=== PATIENT | female | born 1970 | race Hispanic/Latino ===

== ENCOUNTER 2025-07-24 05:40 | Day surgery (SDC) | payer BC ==
[2025-07-22 10:20] LABS: IMMATURE GRANULOCYTE ABSOLUTE 0.02 K/uL (0-1); NUCLEATED RED BLOOD CELLS 0.0 % (0.0-0.19); PLATELET COUNT (AUTO) 313 K/uL (130-400); RED BLOOD CELL COUNT(AUTO) 4.24 MIL/uL (4.00-5.50); RED CELL DISTRIBUTION WIDTH 12.3 % (11.0-15.5); WHITE BLOOD COUNT (AUTO) 5.8 K/uL (4.8-10.8)
[2025-07-22 10:21] VITALS: BP 99/63; PULSE 67; RESP 18; TEMP 97.3
--- NOTE | 2025-07-22 10:21 | EKG ---
[facility] Test Date: 2025-07-22 Test Time: 10:06:59 Pat Name: LUCERO JOSÉ Department: [facility] Room: Gender: F [employer] Operator: [id number] : [id number] Requested By: RICHARD MENDOZA Order Number: [id number] Reading MD: Nora Restrepo Measurements Intervals Decker Rate: 64 P: 83 DC: 148 QRS: -14 QRSD: 96 T: -7 QT: 460 QTc: 475 Interpretive Statements Sinus rhythm No previous ECG available for comparison Electronically Signed On 07-22-2025 20:13:21 CDT by Nora Restrepo Please click the below link to view image of tracing.
[2025-07-22 10:27] LABS: INR 0.99 (0.85-1.15)
[2025-07-22 10:28] LABS: CREATININE 0.8 mg/dL (0.5-1.0); GLOMERULAR FILTR. RATE CALC 86.0 mL/min (>90); GLUCOSE,RANDOM 97.0 mg/dL (70-105); SODIUM SERUM 141.0 mmol/L (136-145); UREA NITROGEN, BLOOD 20.0 mg/dL (7-18)
[~2025-07-24] VITALS: Ht 154.9 cm; Wt 60.6 kg
[2025-07-24] VITALS (7 sets, daily range): BP systolic 102–124; BP diastolic 56–75; PULSE 68–85; RESP 13–17; TEMP 97.5–97.6
[~2025-07-24 05:40] MED LIST: DAPA10TA PO; FURO20TA4 PO; METO-391 PO; SACU1TAB PO; SPIR25TA6 PO
[2025-07-24] MEDS: 0.9%NACL 1000ML 1,000 ML IV SCH (06:40)
[2025-07-24] MEDS ORDERED: SODIUM BICARB 50MEQ 50ML VIAL 50 ML ONE (08:34)
[2025-07-24] MEDS ORDERED: LIDOCAINE HCL 400MG/20ML VIAL ONE (08:34)
[2025-07-24] MEDS ORDERED: IOHEXOL-350 50ML VIAL IV ONE (08:35)
[2025-07-24] MEDS ORDERED: LIDOCAINE HCL 1% MDV 50ML VIAL ONE (08:36)
[2025-07-24] MEDS ORDERED: MIDAZOLAM HCL 1 MG/ML 2ML VIAL ONE ×3 (08:50→09:57)
[2025-07-24] MEDS ORDERED: TRAM50TA4 PO (10:31)
--- NOTE | 2025-07-24 10:40 | NUR ---
POST-HEAD HOST/HOSTESS PROCEDURE SLING TO LEFT ARM. STERILE GAUZE AND STERILE 4X4 TEGADERM DRY AND INTACT. NO ACTIVE BLEEDING OR DRAINAGE. NO REDNESS OR SWELLING NOTED TO LEFT UPPER CHEST. PATIENT ABLE TO WIGGLE FINGERS. AWAKE AND ORIENTED X4. SPOUSE AT BEDSIDE WITH DAUGHTER/ CALL LIGHT AT BEDSIDE, AND BED LOW AND LOCKED.
--- NOTE | 2025-07-24 10:55 | NUR ---
POST-OP EXPORT SALES MANAGER SLING TO LEFT ARM. DRESSING TO LEFT UPPER CHEST. STERILE 4X4 GAUZE, AND STERILE 4X[address] DRESSING DRY AND INTACT. NO ACTIVE BLEEDING OR DRAINAGE. NO REDNESS OR SWELLING NOTED TO DRESSING. PATIENT ABLE TO WIGGLE FINGERS.
--- NOTE | 2025-07-24 11:10 | NUR ---
POST-OP TRENCHER DRIVER SLING TO LEFT ARM. DRESSING TO LEFT UPPER CHEST. 4X4 STER[address] AND 4X[address] NO ACTIVE BLEEDING OR DRAINAGE NOTED. NO REDNESS OR SWELLING NOTED. DRESSING DRY AND INTACT. PATIENT ABLE TO WIGGLE/MOVE FINGERS.
--- NOTE | 2025-07-24 11:25 | NUR ---
POST-OP THREAD WINDER SLING TO LEFT ARM. DRESSING TO LEFT UPPER CHEST. 4X[address] ST[address] AND 4X[address] NO ACTIVE BLEEDING OR DRAINAGE NOTED. NO REDNESS OR SWELLING NOTED. DRESSING DRY AND INTACT. PATIENT ABLE TO WIGGLE/MOVE FINGERS.
--- NOTE | 2025-07-24 12:55 | NUR ---
POST-BAGGAGE SCREENER SLING TO LEFT ARM. 4X4 STERILE GAUZE AND 4X4 STERILE TEGADERM. NO ACTIVE BLEEDING OR DRAINAGE NOTED TO DRESSING.NO REDNESS OR SWELLING NOTED. DRESSING DRY AND INTACT. PATIENT ABLE TO WIGGLE HANDS.
--- NOTE | 2025-07-24 13:26 | NUR ---
POST-SPORTS BOOK WRITER PROCEDURE SLING TO LEFT ARM. 4X4 STERILE GAUZE AND 4X4 STERILE TEGADERM DRY AND INTACT. NO ACTIVE BLEEDING OR DRAINAGE NOTED. NO REDNESS OR SWELLING NOTED. PATIENT ABLE TO WIGGLE FINGERS.
--- NOTE | 2025-07-25 08:22 | HMCIMG ---
CR CHEST, 1 VIEW Clinical History: s/p ICD Comparison: None provided. Findings: Lungs: There is no mass, infiltrate, or acute pulmonary abnormality. Pleural Spaces: No pleural effusion or pneumothorax. Mediastinum: Cardiac size and mediastinal contours are within normal limits. Bones: No acute osseous abnormality. Additional Findings: Left sided chest pacemaker noted. Impression: * Left sided chest pacemaker in situ. * No acute cardiopulmonary pathology is evident. /[place]
== END 2025-07-24 13:44 | disposition home or self-care (01) ==
LOC: DAH 05:40
PROVIDERS: ATTEND Internal Medicine Cardiovascular Disease
DX: I42.0 Dilated cardiomyopathy (principal); I50.22 Chronic systolic (congestive) heart failure; I42.8 Other cardiomyopathies; Z79.899 Other long term (current) drug therapy
CPT/HCPCS: 80048; 84703; 85025; 85610; 85730; 36415; 93005; 33249; 71045; 99156; 99157 ×4; C1722; C1895; J3010 ×2; J0690; J7030; J0665; J3490 ×2; J2250 ×3; Q9967; A4215; A6251; A4222; A4221; A4663; A4216; A6258; A4606; A4223 ×3

== ENCOUNTER → 2025-08-06 | Outpatient (CLI) | payer BC ==
[~2025-08-06] MED LIST changes: +ACET-2079 PO; +TRAM50TA4 PO
--- NOTE | 2025-08-08 05:17 | HMCIMG ---
EXAM: CR Chest, 2 View. CLINICAL HISTORY: RV LEAD MALFUNCTION COMPARISON: None provided. FINDINGS: LUNGS: The lungs show no infiltrate or other acute finding. PLEURAL SPACES: No pleural effusion or pneumothorax. MEDIASTINUM: The cardiomediastinal silhouette is within normal limits.. Pagemaker in position. BONES: No acute osseous abnormality. IMPRESSION: No acute cardiopulmonary pathology is evident. /[place]
== END | disposition home or self-care (01) ==
LOC: RAH 10:44
PROVIDERS: ATTEND Internal Medicine Cardiovascular Disease
DX: T85.01XA Breakdown (mechanical) of ventricular intracranial (communicating) shunt, initial encounter (principal); Y65.8 Other specified misadventures during surgical and medical care; Y92.89 Other specified places as the place of occurrence of the external cause
CPT/HCPCS: 71046